=== PATIENT | female | born 1955 | race Caucasian/White ===

== ENCOUNTER → 2016-07-31 | Outpatient (CLI) | payer OTHER | LOC: NUC 08:38 | DX: M81.0 Age-related osteoporosis without current pathological fracture (principal) ==

== ENCOUNTER → 2018-10-20 | Outpatient (CLI) | payer OTHER | LOC: NUC 09:22 | DX: M81.0 Age-related osteoporosis without current pathological fracture (principal) ==

== ENCOUNTER → 2020-10-24 | Outpatient (CLI) | payer OTHER | LOC: NUC 09:22 | PROVIDERS: ATTEND Internal Medicine | DX: M81.0 Age-related osteoporosis without current pathological fracture (principal); E28.39 Other primary ovarian failure ==